=== PATIENT | female | born 1950 | race Caucasian/White ===

== ENCOUNTER 2017-02-09 11:20 | Emergency (ER) | payer MEDICARE, OTHER ==
--- NOTE | 2017-02-24 15:27 | ER ---
ADMIT: 02/09/2017 RM/LOC: ER [facility] MR#: [id number] [id number] GERALDINE CHENG [address] [place] [id number] Emergency Room Report SEX: F AGE: 66 : 1950 DATE: 02/09/2017 ADDENDUM: This is a 66-year-old white female, coming in with chest pain that proved to be reflux, GERD, which she has a significant pain from this. It has been worked up before. At this time, CBC, chemistry, troponin, EKG, chest x- ray, all negative. We are going to have her continue her medications. She is not supposed to eat an hour before she goes to bed. She is supposed to take her Prilosec before she goes to bed, at least in an hour and then, follow up with her doctor within a week or so. CONDITION ON DISCHARGE: Good. Dexter Vaughan MD/ sanjuana JOB #: [id number] CC: Dexter Vaughan MD, Attending Physician Kellie Posey MD, Family Physician
== END 2017-02-09 14:15 | disposition home or self-care (01) ==
LOC: ER 11:20
DX: K21.0 Gastro-esophageal reflux disease with esophagitis (principal); F32.9 Major depressive disorder, single episode, unspecified; Z85.3 Personal history of malignant neoplasm of breast; Z79.899 Other long term (current) drug therapy

== ENCOUNTER 2017-07-22 07:32 | Emergency (ER) | payer MEDICARE, OTHER ==
--- NOTE | 2017-07-24 13:02 | ER ---
ADMIT: 07/22/2017 RM/LOC: ER [facility] MR#: [id number] [address] [address] GERALDINE CHENG [address] [place] [address] Emergency Room Report SEX: F AGE: 66 : 1950 DATE: 07/22/2017 HISTORY OF PRESENT ILLNESS: The patient is a 66-year-old female, came to the ER with chief complaint of left eye redness, on the lateral part of the sclera which she noticed for 1 day. No history of trauma, no foreign body sensation, no discharge, no pain, and no other complaints except for the static part of it. The patient was anxious about the cause of the problem as she never had similar symptoms in the past. The patient denies any change in the vision. PHYSICAL EXAMINATION: GENERAL: The patient is anxious, but stable, in no pain or distress. VITAL SIGNS: Stable. EYES: Visual acuity on the left eye is 20/40, in the right eye 20/70. Normal extraocular movements. Pupils 3 mm, reactive to light bilaterally. There is no obvious hyphema. Eyelid is everted and there is no foreign body, erythema, or other lesions. On the lateral part of the left eye, there is subconjunctival hemorrhage. The rest of the physical exam of the head and neck were negative. The chest, abdomen, pelvis, and the rest of the exam are noncontributory. Left eye was anesthetized with tetracaine, and pressure on the left eye was 13 mmHg. The patient was reassured and discharged to home. Return precautions. Follow up with the primary doctor. DIAGNOSIS: Left subconjunctival hemorrhage. Glenn Keys MD/ sanjuana JOB #: [id number] CC: Glenn Keys MD, Attending Physician Kellie Posey MD, Family Physician
== END 2017-07-22 08:30 | disposition home or self-care (01) ==
LOC: ER 07:32
DX: H11.32 Conjunctival hemorrhage, left eye (principal); F32.9 Major depressive disorder, single episode, unspecified; Z79.899 Other long term (current) drug therapy